=== PATIENT | male | born 1960 | race African-American/Black ===

== ENCOUNTER 2023-04-12 00:19 | Inpatient (IN) | payer MEDICAID, OTHER ==
[~2023-04-12] VITALS: Ht 177.8 cm; Wt 72.2 kg
[2023-04-12] MEDS ORDERED: ONDANSETRON HCL 4MG/2ML INJ IV STA (02:00)
[2023-04-12] MEDS ORDERED: SODIUM CHLORIDE 0.9% 1,000 ML IV ONE (02:00)
[2023-04-12] MEDS ORDERED: MORPHINE SULFATE 4 MG/ML CPJ (NOT FOR IM USE) IV STA (02:00)
[2023-04-12] MEDS ORDERED: CEFTRIAXONE 1GM PREMIX 50 ML IV ONE (04:15)
[2023-04-12] MEDS ORDERED: AZITHROMYCIN 500MG/250ML 250 ML IV ONE (04:15)
[2023-04-12 04:33] LABS: BASOPHILS % 0.8 % (0.0-2.0); EOSINOPHILS % 0.1 % (0.0-5.0); HEMOGLOBIN. 7.2 g/dL (14.0-18.0); LYMPHOCYTES % 38.1 % (20.0-50.0); MEAN CORPUSCULAR HEMOGLOBIN 25.5 pg (28.0-32.0); MEAN CORPUSCULAR VOLUME 77.9 fL (80.0-94.0); MEAN PLATELET VOLUME 8.8 fl (7.4-10.4); PLATELET 278 x1000/uL (130-400); RED BLOOD CELL COUNT 2.82 mill/uL (4.7-6.1); RED CELL DISTRIBUTION WIDTH 27.2 % (11.6-14.6)
[2023-04-12 04:48] LABS: CHLORIDE 108 mEq/L (98-107)
[2023-04-12 04:57] LABS: ETHANOL BLOOD < 10 mg/dL
[2023-04-12 05:27] LABS: PLATELET ESTIMATE NORMAL
[2023-04-12] MEDS ORDERED: POTASSIUM CHLORIDE 20MEQ TABLET SR PO NR ×2 (05:30→08:30)
[2023-04-12] MEDS ORDERED: ONDANSETRON HCL 4MG/2ML INJ IV PRN (06:15)
[2023-04-12] MEDS ORDERED: CLONIDINE 0.1MG TABLET PO PRN (06:15)
[2023-04-12] MEDS ORDERED: ACETAMINOPHEN 650MG/20.3ML UDC PO PRN (06:15)
[2023-04-12] MEDS ORDERED: IPRATROPIUM/ALBUTEROL 0.5-3(2.5)MG/3ML NEB HHN PRN (06:15)
[2023-04-12] MEDS ORDERED: GUAIFENESIN 200MG/10ML SUGAR FREE UDC PO PRN (06:15)
[2023-04-12 06:20] LABS: CLARITY URINE CLOUDY (CLEAR); COLOR URINE YELLOW (YELLOW); KETONES URINE NEGATIVE (NEGATIVE); LEUKOCYTE ESTERASE URINE NEGATIVE (NEGATIVE); NITRITE URINE NEGATIVE (NEGATIVE); OCCULT BLOOD URINE NEGATIVE (NEGATIVE); PH URINE 5.5 (4.5-8.0); PROTEIN URINE TRACE (NEGATIVE); SPECIFIC GRAVITY URINE 1.017 (1.005-1.030)
[2023-04-12] MEDS: PANTOPRAZOLE 40MG DR TABLET PO SCH (06:30)
[2023-04-12 06:43] LABS: *AMPHETAMINES SCREEN URINE NEGATIVE (NEGATIVE); *BARBITURATES SCREEN URINE NEGATIVE (NEGATIVE); *BENZODIAZEPINES SCREEN URINE NEGATIVE (NEGATIVE); *COCAINE SCREEN URINE NEGATIVE (NEGATIVE); CANNABINOID URINE SCREEN PRESUMTIVE POSITIVE (NEGATIVE); METHADONE URINE SCREEN NEGATIVE (NEGATIVE); OPIATES URINE SCREEN PRESUMTIVE POSITIVE (NEGATIVE); PHENCYCLIDINE URINE SCREEN NEGATIVE (NEGATIVE)
[2023-04-12] MEDS ORDERED: NALOXONE HCL 0.4MG/ML VIAL IV PRN (06:45)
[2023-04-12] MEDS ORDERED: SENNOSIDES/DOCUSATE SOD 8.6/50MG TABLET PO PRN (06:45)
[2023-04-12 07:55] LABS: TOTAL IRON BINDING CAPACITY 198 ug/dL (250-450)
[2023-04-12 08:00] VITALS: BP 156/92
[2023-04-12] MEDS ORDERED: DEXT 5%/0.45% NACL 1000ML 1,000 ML IV ONE (08:45)
[2023-04-12 08:53] LABS: FOLIC ACID (FOLATE) SERUM 6.9 ng/mL (>5.38)
[2023-04-12] MEDS ORDERED: AMLODIPINE 10MG TABLET PO SCH (09:00)
[2023-04-12] MEDS ORDERED: FUROSEMIDE 20MG TABLET PO SCH (09:00)
[2023-04-12 09:15] VITALS: BP 156/92
[2023-04-12] MEDS ORDERED: FUROSEMIDE 40MG/4ML VIAL IVP SCH (09:45)
[2023-04-12] MEDS: FLUOXETINE HCL 20MG CAPSULE PO SCH (10:09)
[2023-04-12] MEDS: ARIPIPRAZOLE 5MG TABLET PO SCH (10:09)
[2023-04-12] MEDS: AMLODIPINE 5MG TABLET PO SCH (10:10)
[2023-04-12] MEDS: LOSARTAN POTASSIUM 100 MG TABLET PO SCH (10:13)
[2023-04-12 10:48] LABS: PHOSPHORUS 2.5 mg/dL (2.5-4.9)
[2023-04-12 11:39] LABS: INR 1.1; PARTIAL THROMBOPLASTIN TIME 29.9 sec (23.4-31.0); PROTHROMBIN TIME 11.9 sec (9.6-11.0)
[2023-04-12 11:41] LABS: CHLORIDE 106 mEq/L (98-107)
[2023-04-12 11:45] LABS: PHOSPHORUS 2.4 mg/dL (2.5-4.9)
[2023-04-12 12:00] VITALS: BP_SYST 133; BP_SYST 161; BP_DIAS 81; BP_DIAS 95
[2023-04-12] MEDS ORDERED: LACTULOSE 20G/30ML UDC PO PRN (14:00)
[2023-04-12] MEDS ORDERED: AMLODIPINE 5MG TABLET PO NR (14:45)
[2023-04-12] MEDS ORDERED: POTASSIUM CHLORIDE INJ 40 MEQ in DEXT 5% WATER 250 ML IV NR (15:30)
[2023-04-12 16:00] VITALS: BP 150/95
[2023-04-12 16:34] LABS: CHLORIDE 107 mEq/L (98-107)
[2023-04-12 16:45] LABS: CREATINE KINASE 99 IU/L (39-308); CREATINE KINASE MB FRACTION 3.8 ng/mL (0.5-3.6)
[2023-04-12] MEDS: FUROSEMIDE 40MG/4ML VIAL IVP SCH (17:12)
[2023-04-12] MEDS: HYDROCODONE/ACETAMINOPHEN 5/325MG TABLET PO PRN ×2 (17:12→23:44)
[2023-04-12] MEDS: POTASSIUM CHLORIDE 20MEQ/PACKET PO SCH (19:49)
[2023-04-12] MEDS: IPRATROPIUM/ALBUTEROL 0.5-3(2.5)MG/3ML NEB HHN SCH (19:56)
[2023-04-12 20:00] VITALS: BP 141/87
[2023-04-12 23:10] LABS: CREATINE KINASE MB FRACTION 3.8 ng/mL (0.5-3.6)
[2023-04-13 04:00] VITALS: BP 145/69
[2023-04-13] MEDS: FUROSEMIDE 40MG/4ML VIAL IVP SCH ×2 (06:18→18:01)
[2023-04-13] MEDS: PANTOPRAZOLE 40MG DR TABLET PO SCH (06:18)
[2023-04-13 08:00] VITALS: BP 143/84
[2023-04-13] MEDS ORDERED: AMLODIPINE 5MG TABLET PO SCH (09:00)
[2023-04-13] MEDS: LOSARTAN POTASSIUM 100 MG TABLET PO SCH (09:32)
[2023-04-13] MEDS: ARIPIPRAZOLE 5MG TABLET PO SCH (09:32)
[2023-04-13] MEDS: POTASSIUM CHLORIDE 20MEQ/PACKET PO SCH ×2 (09:32→20:06)
[2023-04-13] MEDS: FLUOXETINE HCL 20MG CAPSULE PO SCH (09:32)
[2023-04-13] MEDS: AMLODIPINE 5MG TABLET PO SCH ×2 (09:32→20:07)
[2023-04-13] MEDS: IPRATROPIUM/ALBUTEROL 0.5-3(2.5)MG/3ML NEB HHN SCH ×4 (10:54→20:05)
[2023-04-13 11:47] LABS: BG BASE EXCESS 5.4 mmol/L (-2.0-2.0); BG CARBOXYHEMOGLOBIN 0.7 % (0.5-1.5); BG DEOXYHEMOGLOBIN 5.6 % (0.0-5.0); BG FRACTION INSPIRED OXYGEN 30; BG HCO3 ACT 28.7 mmol/L (22.0-26.0); BG METHEMOGLOBIN 0.4 % (0.0-1.5); BG OXYGEN SATURATION 94.3 % (92.0-98.5); BG OXYHEMOGLOBIN 93.3 % (94.0-97.0); BG PCO2 36.7 mmHg (35.0-45.0); BG PH 7.511 (7.350-7.450); BG PO2 71.8 mmHg (75.0-100.0); BG SAMPLE SITE LEFT BRACHIAL; BG TOTAL HEMOGLOBIN 8.6 g/dL (12.0-18.0); BG VENT MODE NASAL CANNULA
[2023-04-13] MEDS: HYDROCODONE/ACETAMINOPHEN 5/325MG TABLET PO PRN ×2 (13:50→20:07)
[2023-04-13 16:00] VITALS: BP_SYST 138; BP_SYST 160; BP_DIAS 93; BP_DIAS 95
[2023-04-13] MEDS ORDERED: LACTULOSE 20G/30ML UDC PO PRN (16:00)
[2023-04-13] MEDS: FERROUS SULFATE 325MG TABLET PO SCH (18:01)
[2023-04-13 20:00] VITALS: BP 175/88
[2023-04-13 21:25] LABS: HEMOGLOBIN. 7.6 g/dL (14.0-18.0); MEAN CORPUSCULAR VOLUME 79.2 fL (80.0-94.0); MEAN PLATELET VOLUME 9.1 fl (7.4-10.4); PLATELET 244 x1000/uL (130-400); RED BLOOD CELL COUNT 3.03 mill/uL (4.7-6.1); RED CELL DISTRIBUTION WIDTH 27.4 % (11.6-14.6)
[2023-04-13 21:30] LABS: CHLORIDE 104 mEq/L (98-107)
[2023-04-13 21:46] LABS: CREATINE KINASE 152 IU/L (39-308); HDL CHOLESTEROL 63 mg/dL (40-59); LDL CHOLESTEROL 74 mg/dL (5-100); T4 FREE 1.19 ng/dL (0.76-1.46)
[2023-04-13 21:53] LABS: PLATELET ESTIMATE NORMAL
[2023-04-14] VITALS: BP 157/97
[2023-04-14] MEDS: IPRATROPIUM/ALBUTEROL 0.5-3(2.5)MG/3ML NEB HHN SCH ×3 (01:36→21:06)
[2023-04-14 04:00] VITALS: BP 156/87
[2023-04-14] MEDS: FUROSEMIDE 40MG/4ML VIAL IVP SCH ×2 (06:14→16:55)
[2023-04-14] MEDS: PANTOPRAZOLE 40MG DR TABLET PO SCH (06:15)
[2023-04-14 06:38] LABS: HEMATOCRIT. 22.4 % (42.0-52.0); HEMOGLOBIN. 7.2 g/dL (14.0-18.0); MEAN CORPUSCULAR HEMOGLOBIN 24.9 pg (28.0-32.0); MEAN CORPUSCULAR VOLUME 77.5 fL (80.0-94.0); MEAN PLATELET VOLUME 8.8 fl (7.4-10.4); PLATELET 262 x1000/uL (130-400); RED BLOOD CELL COUNT 2.89 mill/uL (4.7-6.1); RED CELL DISTRIBUTION WIDTH 26.8 % (11.6-14.6)
[2023-04-14 07:01] LABS: CHLORIDE 104 mEq/L (98-107)
[2023-04-14 07:22] LABS: CREATINE KINASE 191 IU/L (39-308); T4 FREE 1.11 ng/dL (0.76-1.46)
[2023-04-14] MEDS: FERROUS SULFATE 325MG TABLET PO SCH ×3 (07:40→16:55)
[2023-04-14 08:00] VITALS: BP 150/84
[2023-04-14] MEDS: POTASSIUM CHLORIDE 20MEQ/PACKET PO SCH ×2 (08:00→20:00)
[2023-04-14] MEDS: ARIPIPRAZOLE 5MG TABLET PO SCH (09:00)
[2023-04-14] MEDS: FLUOXETINE HCL 20MG CAPSULE PO SCH (09:00)
[2023-04-14] MEDS: AMLODIPINE 5MG TABLET PO SCH ×2 (09:00→21:10)
[2023-04-14] MEDS: LOSARTAN POTASSIUM 100 MG TABLET PO SCH (09:00)
[2023-04-14] MEDS ORDERED: CHLORTHALIDONE 25MG TABLET PO SCH (10:15)
[2023-04-14] MEDS ORDERED: POTASSIUM CHLORIDE 20MEQ TABLET SR PO NR (11:15)
[2023-04-14 12:00] VITALS: BP 140/78
[2023-04-14 16:00] VITALS: BP 129/84
[2023-04-14 17:50] LABS: PLATELET ESTIMATE NORMAL
[2023-04-14 20:00] VITALS: BP 137/82
[2023-04-15] VITALS: BP 126/82
[2023-04-15] MEDS: IPRATROPIUM/ALBUTEROL 0.5-3(2.5)MG/3ML NEB HHN SCH (01:47)
[2023-04-15 04:00] VITALS: BP 139/87
[2023-04-15 05:57] LABS: HEMOGLOBIN. 7.8 g/dL (14.0-18.0); MEAN CORPUSCULAR VOLUME 80.4 fL (80.0-94.0); MEAN PLATELET VOLUME 9.4 fl (7.4-10.4); PLATELET 226 x1000/uL (130-400); RED BLOOD CELL COUNT 3.11 mill/uL (4.7-6.1); RED CELL DISTRIBUTION WIDTH 26.3 % (11.6-14.6)
[2023-04-15 06:19] LABS: CHLORIDE 103 mEq/L (98-107)
[2023-04-15] MEDS: FUROSEMIDE 40MG/4ML VIAL IVP SCH (06:26)
[2023-04-15] MEDS: PANTOPRAZOLE 40MG DR TABLET PO SCH (06:26)
[2023-04-15] MEDS ORDERED: DEXTROSE 50% WATER 50ML SYRINGE IV ONE (07:10)
[2023-04-15 21:41] LABS: PLATELET ESTIMATE NORMAL
== END 2023-04-15 11:34 | DRG 194 ==
LOC: ER 00:19 → MICUSO 06:24 → 8WST 09:38
PROVIDERS: ADMIT Hospitalist; ATTEND Hospitalist
DX: I11.0 Hypertensive heart disease with heart failure (principal); J96.01 Acute respiratory failure with hypoxia; E44.0 Moderate protein-calorie malnutrition; C61 Malignant neoplasm of prostate; D53.9 Nutritional anemia, unspecified; E87.6 Hypokalemia; F43.10 Post-traumatic stress disorder, unspecified; I50.23 Acute on chronic systolic (congestive) heart failure; R53.1 Weakness; I10 Essential (primary) hypertension
CPT/HCPCS: 32555; 36415; 36600; 71045; 74176; 76604; 80048; 80053; 80061; 80305; 80320; 81003; 82375; 82550; 82553; 82607; 82746; 82805; 82962; 83036; 83540; 83550; 83605; 83615; 83735; 83880; 83986; 84100; 84134; 84145; 84153; 84439; 84443; 84484; 85025; 85379; 85651; 88108; 92950; 93005; 93306; 93970; 94640; 99285; J0456; J1940; J2270; J2405; J3480; J7030; J7060; A4315; G0103; G0480